=== PATIENT | female | born 1985 | race African-American/Black ===

== ENCOUNTER 2016-09-24 19:40 | Emergency (ER) | payer SELFPAY ==
[2016-09-24 19:45] VITALS: BP 148/92; PULSE 90; TEMP 98.1; BMI 22.1
[2016-09-24] MEDS ORDERED: IBUPROFEN 600 MG TABLET (FP) PO ONE ×2 (19:54→20:15)
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
== END 2016-09-24 20:43 | disposition home or self-care (01) ==
LOC: JERFT 19:40
PROC: 2W3 Placement, Anatomical Regions, Immobilization (ICD-10-PCS; principal; 2016-09-24)
DX: S63.8X1A Sprain of other part of right wrist and hand, initial encounter (principal); Y04.2XXA Assault by strike against or bumped into by another person, initial encounter; X50.0XXA Overexertion from strenuous movement or load, initial encounter; Y93.89 Activity, other specified; Y92.118 Other place in children's home and orphanage as the place of occurrence of the external cause; Y99.0 Civilian activity done for income or pay
CPT/HCPCS: 73110-TC-LT; 73110-TC-RT; 73130-TC-RT; 99281-25

== ENCOUNTER 2018-06-25 00:35 | Emergency (ER) | payer OTHER ==
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
--- NOTE | 2018-06-25 01:21 | PDOC ---
Medical Decision Making - Medical Decision Making 06/25/18 01:20 Patient seen by the advanced practice provider under my direct supervision. Ancillary testing reviewed as necessary. I agree with plan as outlined by the advanced practice provider. *DC/Admit/Observation/Transfer Diagnosis at time of Disposition: Head injury Qualifiers: Encounter type: initial encounter Qualified Code(s): S09.90XA - Unspecified injury of head, initial encounter Nasal bone fx-closed Qualifiers: Encounter type: initial encounter Qualified Code(s): S02.2XXA - Fracture of nasal bones, initial encounter for closed fracture - Discharge Dispostion Condition at time of disposition: Fair - Referrals Referrals: ON STAFF,NOT [Primary Care Provider] - Kyrie Boyce MD [Staff Physician] - - Patient Instructions Printed Discharge Instructions: DI for Closed Head Injury Additional Instructions: rest and relax as much as possible appply ice to the face. follow up with ENT or plastic surgery within 1 week you may take tylenol or ibuprofen for pain - Post Discharge Activity Forms/Work/School Notes: Back to Work
[2018-06-25 01:34] VITALS: BP 152/98; PULSE 100; TEMP 98.4; BMI 23.3
[2018-06-25] MEDS ORDERED: ACETAMINOPHEN 325 MG TABLET (FP) PO ONE (01:35)
[2018-06-25] MEDS ORDERED: ACETAMINOPHEN 325 MG TABLET (FP) ONE (01:38)
== END 2018-06-25 03:26 | disposition home or self-care (01) ==
LOC: JER 00:35
DX: S02.2XXA Fracture of nasal bones, initial encounter for closed fracture (principal); W50.0XXA Accidental hit or strike by another person, initial encounter; Y93.89 Activity, other specified; Y92.118 Other place in children's home and orphanage as the place of occurrence of the external cause; Y99.0 Civilian activity done for income or pay
CPT/HCPCS: 70450-TC; 70486-TC; 71046-TC-FY; 72125-TC; 84703; 99282-25

== ENCOUNTER 2019-06-06 15:28 | Emergency (ER) | payer OTHER ==
[2019-06-06 15:35] VITALS: BP 137/85; PULSE 86; TEMP 98; BMI 23.0
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
[2019-06-06 16:39] LABS: BASO % 0.4 % (0-2.0); EOS % 2.1 % (0-4.5); HEMATOCRIT 36.3 % (32.4-45.2); HEMOGLOBIN 11.6 GM/dL (10.7-15.3); LYMPH % 22.4 % (8-40); MCH 27.9 pg (25.7-33.7); MEAN CELL VOLUME 87.1 fl (80-96); MEAN PLT VOLUME 10.4 fl (7.5-11.1); MONO % 6.4 % (3.8-10.2); NEUT % 68.7 % (42.8-82.8); PLATELET COUNT 292 K/MM3 (134-434); RBC 4.16 M/mm3 (3.60-5.2); RDW 16.5 % (11.6-15.6); WHITE BLOOD COUNT 9.7 K/mm3 (4.0-10.0)
[2019-06-06 17:10] LABS: BILIRUBIN,TOTAL 0.4 mg/dL (0.2-1); BLOOD UREA NITROGEN 11.2 mg/dL (7-18); CALCIUM 9.9 mg/dL (8.5-10.1); CREATININE 1.1 mg/dL (0.55-1.3); PHOSPHOROUS 3.5 mg/dL (2.5-4.9); POTASSIUM 4.2 mmol/L (3.5-5.1); URIC ACID 4.5 mg/dL (2.6-7.2)
== END 2019-06-06 16:25 | disposition home or self-care (01) ==
LOC: JERFT 15:28 → SUPCPDRO 15:28 → JERFT 16:25
DX: Z09 Encounter for follow-up examination after completed treatment for conditions other than malignant neoplasm (principal); Z91.018 Allergy to other foods
CPT/HCPCS: 36415; 80053; 82465; 82977; 83615; 84100; 84478; 84550; 85025; 86317; 86704; 86706; 86803; 87340; 87389; 99282-25

== ENCOUNTER 2022-12-01 11:00 | Emergency (ER) | payer BC ==
[2022-12-01 11:09] VITALS: RESP 18; BMI 23.6
[2022-12-01] MEDS ORDERED: ACETAMINOPHEN 1000 MG/100 ML BAG IVPB ONE (12:15)
[2022-12-01] MEDS ORDERED: FAMOTIDINE 20 MG/50 ML IVPB 20 MG/50 ML MG IVPB ONE ×2 (12:15→13:35)
[2022-12-01] MEDS ORDERED: SODIUM CHLORIDE 0.9% 500 ML INFUS.BAG IV ONE (12:15)
[2022-12-01] MEDS ORDERED: MAG HYDROX/AL HYDROX/SIMETH 30 ML UNIT-DOSE CUP PO ONE (12:16)
[2022-12-01 13:25] LABS: BASO % 0.3 % (0-2.0); EOS % 0.6 % (0-4.5); HEMATOCRIT 35.9 % (32.4-45.2); HEMOGLOBIN 11.4 GM/dL (10.7-15.3); LYMPH % 9.5 % (8-40); MCH 24.8 pg (25.7-33.7); MCHC 31.8 g/dl (32.0-36.0); MEAN CELL VOLUME 78.1 fl (80-96); MEAN PLT VOLUME 9.2 fl (7.5-11.1); MONO % 6.7 % (3.8-10.2); NEUT % 82.9 % (42.8-82.8); PLATELET COUNT 321 10^3/uL (134-434); RBC 4.59 M/mm3 (3.60-5.2); RDW 16.6 % (11.6-15.6); WHITE BLOOD COUNT 13.1 K/mm3 (4.0-10.0)
[2022-12-01] MEDS ORDERED: ACETAMINOPHEN INJECTION 100 ML IVPB ONE (13:33)
[2022-12-01] MEDS ORDERED: MAG HYDROX/AL HYDROX/SIMETH 30 ML UNIT-DOSE CUP ONE (13:34)
[2022-12-01 13:44] LABS: POTASSIUM 4.2 mmol/L (3.5-5.1)
[2022-12-01 13:46] LABS: ALBUMIN 3.8 g/dl (3.4-5.0); BLOOD UREA NITROGEN 5.8 mg/dL (7-18); CALCIUM 9.9 mg/dL (8.5-10.1)
[2022-12-01 13:49] LABS: CREATININE 1.1 mg/dL (0.55-1.3)
[2022-12-01 13:51] LABS: BILIRUBIN,TOTAL 0.4 mg/dL (0.2-1); TOT PROT 8.3 g/dl (6.4-8.2)
[2022-12-01 15:12] LABS: PH,URINE 6.5 (5.0-8.0); URINE APPEARANCE CLEAR; URINE BILIRUBIN NEGATIVE (NEGATIVE); URINE COLOR YELLOW; URINE GLUCOSE (UA) NEGATIVE (NEGATIVE); URINE KETONE 1+ (NEGATIVE); URINE LEUK ESTERASE NEGATIVE (NEGATIVE); URINE NITRITE NEGATIVE (NEGATIVE); URINE PROTEIN NEGATIVE (NEGATIVE)
[2022-12-01] MEDS ORDERED: KETOROLAC TROMETHAMINE 15 MG/ML VIAL IVPUSH ONE (16:52)
[2022-12-01] MEDS ORDERED: KETOROLAC TROMETHAMINE 15 MG/ML VIAL ONE (17:16)
[2022-12-01 19:17] VITALS: BP 145/90; PULSE 90; TEMP 98
== END 2022-12-01 19:17 | disposition home or self-care (01) ==
LOC: JER 11:00
PROC: 3E033GC Introduction of Other Therapeutic Substance into Peripheral Vein, Percutaneous Approach (ICD-10-PCS; principal; 2022-12-01)
PROC: 3E033GC Introduction of Other Therapeutic Substance into Peripheral Vein, Percutaneous Approach (ICD-10-PCS; 2022-12-01)
PROC: 3E033GC Introduction of Other Therapeutic Substance into Peripheral Vein, Percutaneous Approach (ICD-10-PCS; 2022-12-01)
DX: R10.32 Left lower quadrant pain (principal); R11.10 Vomiting, unspecified; R19.7 Diarrhea, unspecified; R10.13 Epigastric pain; N83.201 Unspecified ovarian cyst, right side; K57.92 Diverticulitis of intestine, part unspecified, without perforation or abscess without bleeding
CPT/HCPCS: 36415; 74177-TC; 76830-TC; 80053; 81003; 84703; 85025; 87086; 99285-25; Q9967